=== PATIENT | female | born 1995 | race African-American/Black ===

== ENCOUNTER 2021-07-19 10:56 | Observation (INO) | payer OTHER ==
[2021-07-19 11:00] VITALS: BMI 33.2
[2021-07-19 13:24] LABS: BASO % 0.6 % (0-2.0); EOS % 1.5 % (0-4.5); HEMATOCRIT 33.3 % (32.4-45.2); LYMPH % 47.1 % (8-40); MCH 27.6 pg (25.7-33.7); MCHC 32.9 g/dl (32.0-36.0); MEAN CELL VOLUME 83.9 fl (80-96); MEAN PLT VOLUME 8.2 fl (7.5-11.1); MONO % 9.4 % (3.8-10.2); NEUT % 41.4 % (42.8-82.8); PLATELET COUNT 205 10^3/uL (134-434); RBC 3.97 M/mm3 (3.60-5.2); RDW 14.4 % (11.6-15.6)
[2021-07-19 13:46] LABS: CHLORIDE 106 mmol/L (98-107); SODIUM 140 mmol/L (136-145)
[2021-07-19 13:47] LABS: ALBUMIN 3.9 g/dl (3.4-5.0)
[2021-07-19 13:48] LABS: ANION GAP 6 MMOL/L (8-16); BLOOD UREA NITROGEN 11.3 mg/dL (7-18); CALCIUM 9.2 mg/dL (8.5-10.1); CO2 28 mmol/L (21-32)
[2021-07-19 13:49] LABS: GLUCOSE,RANDOM 84 mg/dL (74-106)
[2021-07-19 13:52] LABS: CREATININE 0.9 mg/dL (0.55-1.3); PHOSPHOROUS 3.8 mg/dL (2.5-4.9); SGOT/AST 8 U/L (15-37); SGPT/ALT 19 U/L (13-61)
[2021-07-19 13:53] LABS: BILIRUBIN,TOTAL 0.5 mg/dL (0.2-1); TOT PROT 7.2 g/dl (6.4-8.2)
[2021-07-19 13:54] LABS: ALK PHOS 46 U/L (45-117)
[2021-07-19] MEDS ORDERED: MELATONIN 5 MG TABLETS PO SCH (22:00)
[2021-07-19] MEDS ORDERED: MELATONIN 5 MG TABLETS ONE (22:45)
[2021-07-20 06:28] LABS: BASO % 0.6 % (0-2.0); EOS % 2.2 % (0-4.5); HEMATOCRIT 32.6 % (32.4-45.2); HEMOGLOBIN 10.7 GM/dL (10.7-15.3); LYMPH % 50.5 % (8-40); MCH 27.8 pg (25.7-33.7); MCHC 32.8 g/dl (32.0-36.0); MEAN CELL VOLUME 84.8 fl (80-96); MEAN PLT VOLUME 7.9 fl (7.5-11.1); MONO % 10.8 % (3.8-10.2); NEUT % 35.9 % (42.8-82.8); PLATELET COUNT 196 10^3/uL (134-434); RBC 3.85 M/mm3 (3.60-5.2); RDW 14.5 % (11.6-15.6); WHITE BLOOD COUNT 3.6 K/mm3 (4.0-10.0)
[2021-07-20 06:59] LABS: ALBUMIN 3.5 g/dl (3.4-5.0); CALCIUM 8.9 mg/dL (8.5-10.1); MAGNESIUM 1.9 mg/dL (1.8-2.4)
[2021-07-20 07:01] LABS: BLOOD UREA NITROGEN 10.3 mg/dL (7-18)
[2021-07-20 07:02] LABS: CREATININE 0.9 mg/dL (0.55-1.3)
[2021-07-20 07:03] LABS: TOT PROT 6.6 g/dl (6.4-8.2)
[2021-07-20 07:04] LABS: PHOSPHOROUS 4.6 mg/dL (2.5-4.9)
[2021-07-20 07:05] LABS: BILIRUBIN,TOTAL 0.5 mg/dL (0.2-1)
[2021-07-20 18:14] VITALS: BP 130/74; PULSE 60; TEMP 98.4
== END 2021-07-20 18:23 | disposition left against medical advice (07) ==
LOC: JER 10:56 → INTOOBSV 16:27 → UNDOADMOB 16:27 → JERBED 16:27
PROVIDERS: ADMIT Internal Medicine
DX: R00.1 Bradycardia, unspecified (principal); R01.1 Cardiac murmur, unspecified; R00.2 Palpitations; R73.03 Prediabetes; E66.8 Other obesity; Z68.33 Body mass index [BMI] 33.0-33.9, adult; R42 Dizziness and giddiness; Z88.0 Allergy status to penicillin; Z88.8 Allergy status to other drugs, medicaments and biological substances
CPT/HCPCS: 36415; 71046-TC-FY; 80053; 80061; 82550; 82553; 83036; 83735; 84100; 84436; 84443; 84479; 84484; 85025; 86618; 87207; 93005; 93010; 93017; 93018; 93225; 93226; 93306-TC; 99285-25; C9803; G0378; U0003; U0005